=== PATIENT | male | born 1995 | race Caucasian/White ===

== ENCOUNTER 2019-11-04 21:22 | Emergency (ER) | payer OTHER ==
[~2019-11-04] VITALS: Ht 167.6 cm; Wt 61.7 kg
--- NOTE | ~2019-11-04 | EKG ---
[place] [address] ELECTROCARDIOGRAM REPORT Name: SHANTEL LEONARD Room: [facility]#: [id number] Admission: Attend Phys: Discharge: Date of : 89 Date of Service: 11/04/192153 Report #: [id number] THIS REPORT FOR: cc: FAM - No family physician/PCP Henrietta Shrestha MD ~ THIS REPORT FOR: //name// [facility] ED Test Date: 2019-11-04 Test Time: 21:54:20 Pat Name: SHANTEL LEONARD Department: Room: Gender: M [employer] Modeler: CHAUNCEY : 1995 Requested By: Jenny Valenzuela Order Number: [id number] MD: Measurements Intervals [place] Rate: 81 P: 51 WV: 157 QRS: 85 QRSD: 100 T: 16 QT: 392 QTc: 455 Interpretive Statements Sinus rhythm ST elev, probable normal early repol pattern Baseline wander in lead(s) V6 No previous ECG available for comparison [email or web address] By: 53 [id number] Epiphany Epiphany, /EPI
[~2019-11-04 21:22] MED LIST: ACETAMINOPHEN-1 EAC1 PO; BACTRIM DS TAB1 EACH PO; BUPROPION; KEFLEX500 MG PO; NOHOMEMEDICATIONS; PHENERGAN 25 MG25 M1 PO; PROZAC; ZOFRAN ODT4 MG PO
[2019-11-04 22:31] LABS: ABSOLUTE EOSINOPHILS 0.2 thou/uL (0.0-0.7); ABSOLUTE LYMPHOCYTES 1.3 thou/uL (0.8-5.3); ABSOLUTE MONOCYTES 0.8 thou/uL (0.0-1.2); ABSOLUTE NEUTROPHILS 4.3 thou/uL (1.6-8.1); BASOPHILS 0.5 %; EOSINOPHILS 2.7 %; HEMOGLOBIN 15.7 gm/dL (14.0-18.0); LYMPHOCYTES 20.4 %; MCH 30.1 pg (26.0-34.0); MCHC 34.8 g/dL (28.0-37.0); MCV 86.3 fL (80.0-100.0); MONOCYTES 11.6 %; MPV 9.7 fl. (7.2-11.1); NUCLEATED RBCS 0 /100WBC; PLATELET COUNT* 174 thou/uL (150-400); POLYS 64.8 %; RBC 5.21 mil/uL (4.50-6.00); WBC 6.6 thou/uL (4.0-11.0)
[2019-11-04 22:35] LABS: CREATININE 0.7 mg/dL (0.6-1.3); POTASSIUM 3.9 mmol/L (3.5-5.1)
[2019-11-04 22:39] LABS: ALBUMIN 4.3 g/dL (3.4-5.0); TOTAL BILIRUBIN 1.3 mg/dL (<0.1-1.0); TOTAL PROTEIN 7.4 g/dL (6.4-8.2)
[2019-11-04 23:06] LABS: URINE BILIRUBIN NEGATIVE (Negative); URINE BLOOD NEGATIVE (Negative); URINE CLARITY CLEAR; URINE COLOR YELLOW; URINE GLUCOSE-RANDOM NEGATIVE (Negative); URINE KETONES 1+ (Negative); URINE LEUKOCYTES NEGATIVE (Negative); URINE NITRITE NEGATIVE (Negative); URINE PROTEIN NEGATIVE (Negative); URINE SPECIFIC GRAVITY 1.015 (1.005-1.030)
[2019-11-04 23:12] LABS: AMP/METHAMP Negative (Negative); BARBITURATES Negative (Negative); BENZODIAZEPINES POSITIVE (Negative); COCAINE POSITIVE (Negative); METHADONE Negative (Negative); OPIATES POSITIVE (Negative); PCP Negative (Negative); THC POSITIVE (Negative)
[2019-11-04 23:40] VITALS: BP 120/65
== END 2019-11-04 23:41 ==
LOC: M.ERS 21:22
PROVIDERS: Personal Emergency Response Attendant
DX: F13.10 Sedative, hypnotic or anxiolytic abuse, uncomplicated (principal); F41.9 Anxiety disorder, unspecified; F32.9 Major depressive disorder, single episode, unspecified

== ENCOUNTER 2020-07-10 13:51 | Emergency (ER) | payer OTHER ==
[~2020-07-10] VITALS: Ht 167.6 cm; Wt 59.0 kg
[2020-07-10] MEDS ORDERED: PHENERGAN 25 MG25 M1 PO (15:19)
[2020-07-10] MEDS ORDERED: FLEXERIL PO (15:19)
[2020-07-10 15:25] VITALS: BP 110/71
[2020-07-10] MEDS ORDERED: SUBOXONE 8 MG-1 EAC3 SUBLING (16:43)
== END 2020-07-10 15:25 | disposition home or self-care (01) ==
LOC: M.ERS 13:51
DX: F32.9 Major depressive disorder, single episode, unspecified (principal); F11.20 Opioid dependence, uncomplicated; F41.9 Anxiety disorder, unspecified

== ENCOUNTER 2020-08-26 13:40 | Emergency (ER) | payer OTHER ==
[~2020-08-26] VITALS: Ht 167.6 cm; Wt 59.0 kg
[~2020-08-26 13:40] MED LIST changes: +FLEXERIL PO; +SUBOXONE 8 MG-1 EAC3 SUBLING
[2020-08-26 14:29] LABS: ABSOLUTE BASOPHILS 0.1 thou/uL (0.0-0.2); ABSOLUTE EOSINOPHILS 0.1 thou/uL (0.0-0.7); ABSOLUTE LYMPHOCYTES 1.3 thou/uL (0.8-5.3); ABSOLUTE MONOCYTES 0.7 thou/uL (0.0-1.2); ABSOLUTE NEUTROPHILS 10.7 thou/uL (1.6-8.1); BASOPHILS 0.4 %; EOSINOPHILS 1.1 %; HEMATOCRIT 48.9 % (42.0-52.0); HEMOGLOBIN 16.3 gm/dL (14.0-18.0); LYMPHOCYTES 10.1 %; MCH 28.5 pg (26.0-34.0); MCHC 33.3 g/dL (28.0-37.0); MCV 85.5 fL (80.0-100.0); MONOCYTES 5.5 %; MPV 8.2 fl. (7.2-11.1); NUCLEATED RBCS 0 /100WBC; PLATELET COUNT* 230 thou/uL (150-400); POLYS 82.9 %; RBC 5.72 mil/uL (4.50-6.00); RDW-CV 14.3 % (10.5-14.5); WBC 12.9 thou/uL (4.0-11.0)
[2020-08-26 14:38] LABS: CALCIUM 8.9 mg/dL (8.5-10.1); CREATININE 0.7 mg/dL (0.6-1.3); POTASSIUM 3.7 mmol/L (3.5-5.1)
[2020-08-26 14:43] LABS: TOTAL BILIRUBIN 1.2 mg/dL (<0.1-1.0); TOTAL PROTEIN 7.8 g/dL (6.4-8.2)
[2020-08-26 14:44] LABS: ALCOHOL < 10 mg/dL (<10)
[2020-08-26 14:47] LABS: ACETAMINOPHEN < 2 ug/mL (10-30); SALICYLATE < 2.8 mg/dL (2.8-20.0)
[2020-08-26 15:35] LABS: URINE BILIRUBIN NEGATIVE (Negative); URINE BLOOD NEGATIVE (Negative); URINE CLARITY CLEAR; URINE COLOR YELLOW; URINE GLUCOSE-RANDOM NEGATIVE (Negative); URINE KETONES NEGATIVE (Negative); URINE LEUKOCYTES-REFLEX NEGATIVE (Negative); URINE NITRITE-REFLEX NEGATIVE (Negative); URINE PROTEIN NEGATIVE (Negative)
[2020-08-26 15:44] LABS: AMP/METHAMP Negative (Negative); BARBITURATES Negative (Negative); BENZODIAZEPINES Negative (Negative); COCAINE Negative (Negative); METHADONE Negative (Negative); OPIATES POSITIVE (Negative); PCP Negative (Negative); THC Negative (Negative)
[2020-08-26 18:54] VITALS: BP 123/69
== END 2020-08-26 18:54 ==
LOC: M.ERS 13:40
PROVIDERS: Emergency Medicine Emergency Medical Services
DX: F32.9 Major depressive disorder, single episode, unspecified (principal); F41.9 Anxiety disorder, unspecified